=== PATIENT | female | born 1990 | race Caucasian/White ===

== ENCOUNTER 2017-10-07 22:08 | Emergency (ER) | payer OTHER, SELFPAY ==
[2017-10-07] MEDS ORDERED: MECLIZINE HCL 12.5 MG TAB ONE (22:25)
[2017-10-07] MEDS ORDERED: ONDANSETRON 4 MG/2 ML VIAL ONE (22:26)
[2017-10-07] MEDS ORDERED: NA CHLORIDE 0.9% 500 ML ONE (22:27)
[2017-10-07 22:42] LABS: Absolute Lymphocytes (CBC) 3.4 K/uL (0.7-4.9); Absolute Monocytes 0.5 K/uL (0.1-1.3); Absolute Neutrophil 4.8 K/uL (1.8-8.0); Basophils % 0.4 % (0-1.3); Eosinophils % 1.2 % (0-4.4); Hematocrit 42.1 % (36.0-45.0); Lymphocytes % 38.1 % (15.3-44.8); MCH 28.7 pg (27.0-35.0); MCV 86.5 fL (80-100); MPV 7.1 fL (7.6-11.3); Monocytes % 6.1 % (3.3-12.3); RBC Red Blood Cell Count 4.87 M/uL (3.86-4.86)
[2017-10-07 22:49] LABS: Urine Blood TRACE (NEG); Urine Glucose NEGATIVE (NEG); Urine Protein NEGATIVE (NEG); Urine Specific Gravity >1.030 (1.005-1.030); Urine pH 5.5 (5.0-7.0)
[2017-10-07 22:49] LABS: Barbiturates NEGATIVE; Benzodiazepines NEGATIVE; Cocaine NEGATIVE; METHAMPHETAM NEGATIVE; Opiates NEGATIVE; Phencyclidine NEGATIVE; THC Cannibis NEGATIVE
[2017-10-07 22:51] LABS: Potassium 3.3 mEq/L (3.6-5.0)
--- NOTE | 2017-10-07 23:21 | ER ---
Nurse's Notes [facility] Name: Baylee Tobias Age: 27 yrs Sex: Female : 1990 Arrival Date: 10/07/2017 Time: 22:09 Bed 7 Private MD: Diagnosis: Acute labyrinthitis Presentation: 10/07 22:09 Presenting complaint: Patient states: I started working nights on Friday for the first tl2 time. I was sitting down at work, smelled something sweet and then got dizzy and nauseous. Denies pain or shortness of breath. Transition of care: patient was not received from another setting of care. Onset of symptoms was October 07, 2017 at 21:30. Initial Sepsis Screen: Does the patient meet any 2 criteria? No. Patient's initial sepsis screen is negative. Does the patient have a suspected source of infection? No. Patient's initial sepsis screen is negative. Care prior to arrival: None. 22:09 Method Of Arrival: EMS: [facility] tl2 22:09 Acuity: LOUANN 3 tl2 Triage Assessment: 22:11 General: Appears in no apparent distress. comfortable, Behavior is calm, cooperative, tl2 appropriate for age. Pain: Denies pain. Neuro: Level of Consciousness is awake, alert, obeys commands, Oriented to person, place, time, situation, Reports dizziness. Cardiovascular: Denies chest pain. Respiratory: Airway is patent Respiratory effort is even, unlabored, Respiratory pattern is regular, symmetrical, Denies shortness of breath. GI: Reports nausea, Patient currently denies vomiting. : No signs and/or symptoms were reported regarding the genitourinary system. Derm: Skin is pink, warm \T\ dry. 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 - Social history:: Smoking status: Patient/guardian denies using tobacco. Screenin:11 Abuse screen: Denies threats or abuse. Denies injuries from another. Nutritional mg2 screening: No deficits noted. Tuberculosis screening: No symptoms or risk factors identified. Fall Risk None identified. Assessment: 22:09 General: Appears in no apparent distress. comfortable. Pain: Denies pain. Neuro: Level mg2 of Consciousness is awake, alert, obeys commands, Oriented to person, place, time. Cardiovascular: Capillary refill < 3 seconds Patient's skin is warm and dry. Respiratory: Airway is patent Respiratory effort is even, unlabored, Respiratory pattern is regular, symmetrical. GI: No signs and/or symptoms were reported involving the gastrointestinal system. : No signs and/or symptoms were reported regarding the genitourinary system. EENT:. Derm: Skin is intact, Skin is pink, warm \T\ dry. normal. Musculoskeletal: No signs and/or symptoms reported regarding the musculoskeletal system. 23:33 Reassessment: Patient appears in no apparent distress at this time. Patient and/or tl2 family updated on plan of care and expected duration. Pain level reassessed. Patient is alert, oriented x 3, equal unlabored respirations, skin warm/dry/pink. Pt verbalized understanding of discharge instructions, need for follow up and prescription usage. Work release provided Patient states feeling better. Vital Signs: 22:11 BP 122 / 60; Pulse 72; Resp 18; Temp 98.2(O); Pulse Ox 98% on R/A; Weight 102.06 kg; tl2 Height 5 ft. 4 in. (162.56 cm); Pain 0/10; 23:15 BP 106 / 55; Pulse 63; Resp 16; Pulse Ox 100% on R/A; tl2 23:33 BP 106 / 55; Pulse 63; Resp 21; Pulse Ox 100% on R/A; tl2 22:11 Body Mass Index 38.62 (102.06 kg, 162.56 cm) tl2 ED Course: 22:09 Patient arrived in ED. ds1 22:09 Gaby Pepper, RN is Primary Nurse. tl2 22:09 Primary Nurse role handed off by Gaby Pepper RN mg2 22:09 Antony Loredo RN is Primary Nurse. mg2 22:10 Triage completed. tl2 22:11 Serg Blanton MD is Attending Physician. pkl 22:11 Patient has correct armband on for positive identification. Bed in low position. Call mg2 light in reach. Side rails up X2. Door closed. Noise minimized. Warm blanket given. 22:11 Arm band placed on right wrist. tl2 22:38 Inserted saline lock: 20 gauge in right antecubital area, using aseptic technique. mg2 Blood collected. 23:33 No provider procedures requiring assistance completed. IV discontinued, intact, tl2 bleeding controlled, No redness/swelling at site. Pressure dressing applied. Administered Medications: 22:36 Drug: NS 0.9% 500 ml Route: IV; Rate: bolus; Site: right antecubital; mg2 23:37 Follow up: IV Status: Completed infusion; IV Intake: 500ml tl2 22:37 Not Given (Physician Discretion): Zofran 4 mg PO once mg2 22:37 Drug: Zofran 4 mg Route: IVP; Site: right antecubital; mg2 22:52 Follow up: Response: No adverse reaction; Nausea is decreased mg2 22:53 Drug: Antivert 50 mg Route: PO; mg2 23:37 Follow up: Response: No adverse reaction; Marked relief of symptoms tl2 23:31 Drug: K-Dur 40 mEq Route: PO; tl2 23:36 Follow up: Response: No adverse reaction; Medication administered at discharge. tl2 Intake: 23:37 IV: 500ml; Total: 500ml. tl2 Outcome: 23:20 Discharge ordered by . pkl 23:33 Discharged to home ambulatory, with family. tl2 23:33 Condition: stable 23:33 Discharge instructions given to patient, Instructed on discharge instructions, follow up and referral plans. medication usage, Demonstrated understanding of instructions, follow-up care, medications, Prescriptions given X 2. 23:37 Patient left the ED. tl2 Signatures: Serg Blanton MD MD pkl Darshana Landin ds1 Gaby Pepper, KLARISSA RN tl2 Antony Loredo RN RN mg2
--- NOTE | 2017-10-07 23:21 | EDPHYS ---
Physician Documentation [facility] Name: Baylee Tobias Age: 27 yrs Sex: Female : 1990 Arrival Date: 10/07/2017 Time: 22:09 Bed 7 Private MD: ED Physician Serg Blanton HPI: 10/07 22:23 This 27 yrs old Female presents to ER via EMS with complaints of Nausea. pkl 22:23 The patient presents with lightheadedness. Onset: The symptoms/episode began/occurred pkl suddenly, just prior to arrival. Associated signs and symptoms: Pertinent positives: nausea. 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 - Social history:: Smoking status: Patient/guardian denies using tobacco. ROS: 22:23 Eyes: Negative for injury, pain, redness, and discharge, ENT: Negative for injury, pkl pain, and discharge, Neck: Negative for injury, pain, and swelling, Cardiovascular: Negative for chest pain, palpitations, and edema, Respiratory: Negative for shortness of breath, cough, wheezing, and pleuritic chest pain, Abdomen/GI: Negative for abdominal pain, nausea, vomiting, diarrhea, and constipation, Back: Negative for injury and pain, : Negative for injury, bleeding, discharge, and swelling, MS/Extremity: Negative for injury and deformity, Skin: Negative for injury, rash, and discoloration. 22:23 Neuro: Positive for dizziness. Exam: 22:23 Head/Face: Normocephalic, atraumatic. Eyes: Pupils equal round and reactive to light, pkl extra-ocular motions intact. Lids and lashes normal. Conjunctiva and sclera are non-icteric and not injected. Cornea within normal limits. Periorbital areas with no swelling, redness, or edema. ENT: Nares patent. No nasal discharge, no septal abnormalities noted. Tympanic membranes are normal and external auditory canals are clear. Oropharynx with no redness, swelling, or masses, exudates, or evidence of obstruction, uvula midline. Mucous membranes moist. Neck: Trachea midline, no thyromegaly or masses palpated, and no cervical lymphadenopathy. Supple, full range of motion without nuchal rigidity, or vertebral point tenderness. No Meningismus. Chest/axilla: Normal chest wall appearance and motion. Nontender with no deformity. No lesions are appreciated. Cardiovascular: Regular rate and rhythm with a normal S1 and S2. No gallops, murmurs, or rubs. Normal PMI, no JVD. No pulse deficits. Respiratory: Lungs have equal breath sounds bilaterally, clear to auscultation and percussion. No rales, rhonchi or wheezes noted. No increased work of breathing, no retractions or nasal flaring. Abdomen/GI: Soft, non-tender, with normal bowel sounds. No distension or tympany. No guarding or rebound. No evidence of tenderness throughout. Back: No spinal tenderness. No costovertebral tenderness. Full range of motion. Skin: Warm, dry with normal turgor. Normal color with no rashes, no lesions, and no evidence of cellulitis. MS/ Extremity: Pulses equal, no cyanosis. Neurovascular intact. Full, normal range of motion. Neuro: Awake and alert, GCS 15, oriented to person, place, time, and situation. Cranial nerves II-XII grossly intact. Motor strength 5/5 in all extremities. Sensory grossly intact. Cerebellar exam normal. Normal gait. Psych: Awake, alert, with orientation to person, place and time. Behavior, mood, and affect are within normal limits. Vital Signs: 22:11 BP 122 / 60; Pulse 72; Resp 18; Temp 98.2(O); Pulse Ox 98% on R/A; Weight 102.06 kg; tl2 Height 5 ft. 4 in. (162.56 cm); Pain 0/10; 23:15 BP 106 / 55; Pulse 63; Resp 16; Pulse Ox 100% on R/A; tl2 23:33 BP 106 / 55; Pulse 63; Resp 21; Pulse Ox 100% on R/A; tl2 22:11 Body Mass Index 38.62 (102.06 kg, 162.56 cm) tl2 MDM: 22:11 Patient medically screened. pk 23:18 Data reviewed: vital signs, nurses notes, lab test result(s). pkl 10/07 22:21 Order name: CBC with Diff; Complete Time: 23:16 pkl 10/07 22:21 Order name: Chem 7; Complete Time: 23:16 pkl 10/07 22:25 Order name: UDS; Complete Time: 23:16 tl2 10/07 22:40 Order name: Urine Dipstick--Ancillary (enter results); Complete Time: 23:16 rg2 10/07 22:40 Order name: Urine --Ancillary (enter results); Complete Time: 23:16 rg2 Administered Medications: 22:36 Drug: NS 0.9% 500 ml Route: IV; Rate: bolus; Site: right antecubital; mg2 23:37 Follow up: IV Status: Completed infusion; IV Intake: 500ml tl2 22:37 Not Given (Physician Discretion): Zofran 4 mg PO once mg2 22:37 Drug: Zofran 4 mg Route: IVP; Site: right antecubital; mg2 22:52 Follow up: Response: No adverse reaction; Nausea is decreased mg2 22:53 Drug: Antivert 50 mg Route: PO; mg2 23:37 Follow up: Response: No adverse reaction; Marked relief of symptoms tl2 23:31 Drug: K-Dur 40 mEq Route: PO; tl2 23:36 Follow up: Response: No adverse reaction; Medication administered at discharge. tl2 Disposition: 10/07/17 23:20 Discharged to Home. Impression: Acute labyrinthitis. - Condition is Stable. - Prescriptions for Antivert 25 mg Oral Tablet - take 1 tablet by ORAL route every 8 hours As needed; 20 tablet. Zofran 4 mg Oral Tablet - take 1 tablet by ORAL route every 12 hours As needed; 6 tablet. - Medication Reconciliation Form, Thank You Letter, Antibiotic Education, Prescription Opioid Use, Work release form form. - Follow up: Private Physician; When: 2 - 3 days; Reason: Re-evaluation by your physician. - Problem is new. - Symptoms have improved. 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 Impression: Acute labyrinthitis. Condition tl2 is Stable. Forms are Medication Reconciliation Form, Thank You Letter, Antibiotic Education, Prescription Opioid Use. Follow up: Private Physician; When: 2 - 3 days; Reason: Re-evaluation by your physician. Problem is new. Symptoms have improved. pkl
[2017-10-07] MEDS ORDERED: POTASSIUM CL SA 10 MEQ TAB PO ONE (23:25)
[2017-10-07 23:42] VITALS: BP 106/55; TEMP 98.2; O2SAT 100
== END 2017-10-07 23:37 | disposition home or self-care (01) ==
LOC: ER 22:08
DX: H83.09 Labyrinthitis, unspecified ear (principal)
CPT/HCPCS: 36415; 80048; 80307; 81003; 81025; 85025; 96361; 96374; 99284; J2405